=== PATIENT | female | born 1990 | race Caucasian/White ===

== ENCOUNTER 2021-10-17 04:30 | Inpatient (IN) ==
[2021-10-17 04:35] VITALS: BMI 46.9
[2021-10-17 05:07] LABS: BILIRUBIN,URINE NEGATIVE (NEGATIVE); BLOOD/HEMOGLOBIN,URINE NEGATIVE (NEGATIVE); GLUCOSE, URINE NEGATIVE (NEGATIVE); KETONES,URINE NEGATIVE (NEGATIVE); LEUKOCYTE ESTERASE ,URINE NEGATIVE (NEGATIVE); NITRITES,URINE NEGATIVE (NEGATIVE); PROTEIN,URINE NEGATIVE (NEGATIVE); UROBILINOGEN,URINE NORMAL (NORMAL)
[2021-10-17 05:17] LABS: APPEARANCE,URINE CLEAR (CLEAR); COLOR,URINE PALE YELLOW (YELLOW)
[2021-10-17] MEDS ORDERED: REGLAN INJ 10 MG VIAL IVP PRN (05:30)
[2021-10-17] MEDS ORDERED: PITOCIN IVP ONE (05:30)
[2021-10-17] MEDS ORDERED: D5 LR + PITOCIN 10 UNITS/L 10 UNITS/1,000 ML BAG IV PRN (05:30)
[2021-10-17] MEDS ORDERED: LR 1,000 ML IV 1,000 ML IV ONE ×2 (05:30→06:28)
[2021-10-17] MEDS ORDERED: PITOCIN ONE (05:47)
[2021-10-17] MEDS ORDERED: D5 LR + PITOCIN 10 UNITS/L 10 UNITS/1,000 ML BAG IV ONE (05:47)
[2021-10-17] MEDS ORDERED: BETADINE SOLN ONE (05:47)
[2021-10-17] MEDS ORDERED: D5 1/2 NS 1,000 ML 1,000 ML IV ONE (05:47)
[2021-10-17] MEDS ORDERED: D5 1/2 NS 1,000 mL + PITOCIN 20 UNITS/L IV 20 UNITS/1,000 ML BAG IV ONE (05:48)
[2021-10-17] MEDS ORDERED: STADOL INJ ONE ×3 (05:48→14:01)
[2021-10-17] MEDS: STADOL INJ IVP PRN ×2 (05:50→10:36)
[2021-10-17 05:54] LABS: BASOPHILS % (AUTO) 0.3 % (0.2-1.0); EOSINOPHILS # (AUTO) 0.1 x10^3/uL (0.0-0.2); EOSINOPHILS % (AUTO) 0.5 % (0.9-2.9); HEMATOCRIT 36.2 % (36.0-47.0); LYMPHOCYTES # (AUTO) 1.5 X10^3/uL (1.3-2.9); LYMPHOCYTES % (AUTO) 9.6 % (21.0-51.0); MEAN CORPUSCULAR HEMOGLOBIN 29.8 pg (27.0-34.0); MEAN CORPUSCULAR HGB CONC 33.1 g/dL (33.0-35.0); MEAN PLATELET VOLUME 7.6 fL (7.4-11.0); MONOCYTES # (AUTO) 0.9 x10^3/uL (0.3-0.8); MONOCYTES % (AUTO) 5.5 % (0.0-13.0); NEUTROPHILS # (AUTO) 13.5 x10^3/uL (2.2-4.8); NEUTROPHILS % (AUTO) 84.1 % (42.0-75.0); PLATELET COUNT 285 X10^3/uL (150.0-450.0); RED BLOOD COUNT 4.02 X10^6/uL (3.5-5.4); RED CELL DISTRIBUTION WIDTH 15.9 % (11.6-16.5); WHITE BLOOD COUNT 16.1 X10^3/uL (3.6-10.0)
[2021-10-17] MEDS ORDERED: D5 1/2 NS 1,000 ML 1,000 ML IV SCH (06:00)
[2021-10-17 06:03] LABS: ALANINE AMINOTRANSFERASE 15 Units/L (12-78); ALBUMIN 2.4 g/dL (3.4-5.0); ALKALINE PHOSPHATASE 119 Units/L (46-116); ASPARTATE AMINO TRANSFERASE 8 Units/L (15-37); BLOOD UREA NITROGEN 6 mg/dL (7-18); CALCIUM 8.1 mg/dL (8.5-10.1); CARBON DIOXIDE 18.9 mmol/L (21-32); CHLORIDE 106 mmol/L (98-107); COR CA(FOR HYPOALB) 9.4 mg/dL (8.5-10.1); CREATININE 0.63 mg/dL (0.55-1.02); SODIUM 136 mmol/L (136-145); TOTAL PROTEIN 6.3 g/dL (6.4-8.2); eGFR NON BLACK RACES > 60 (>60)
[2021-10-17 06:21] LABS: AMNISURE ROM TEST THERE IS A RUPTURE (NO RUPTURE)
[2021-10-17] MEDS ORDERED: FENTANYL VIAL INJ 100 mcg ONE (06:28)
[2021-10-17] MEDS ORDERED: NAROPIN EPIDURAL 0.2% 100 ML ONE (06:28)
--- NOTE | 2021-10-17 06:47 | DR.OB ---
OB Quick Note - Assessment/Plan Assessment/Plan: S-No complaint except CTX. O-Afebrile,VSS [id number] with good LTV, +accel, no decel. CTX=q 2-3 min., strong by palpation CVX=4-5cm/90%/0/VTX SROM noted with clear fluid. IUPC and FSE placed. No lesions noted. A-IUP at 39 1/7 weeks in active labor and SROM P-Begin pitocin augmentation as needed. F/U labs Anticipate
[2021-10-17] MEDS ORDERED: MORPHINE SULFATE INJ 2 MG INJ IVP PRN (08:25)
[2021-10-17] MEDS ORDERED: TYLENOL 500 MG TAB EXTRA STRENGTH PO PRN ×2 (09:36→15:01)
[2021-10-17] MEDS ORDERED: TYLENOL 500 MG TAB EXTRA STRENGTH PO ONE (09:38)
[2021-10-17] MEDS ORDERED: PHENERGAN INJ 25 MG IM PRN (14:10)
[2021-10-17] MEDS: D5 1/2 NS 1,000 ML 1,000 ML with PITOCIN 20 UNITS IV SCH ×4 (14:20→23:06)
[2021-10-17] MEDS ORDERED: MILK OF MAGNESIA PO PRN (15:01)
[2021-10-17] MEDS ORDERED: AMBIEN PO PRN (15:01)
[2021-10-17] MEDS ORDERED: ADACEL or BOOSTRIX TDaP VACCINE IM ONE (15:01)
[2021-10-17] MEDS ORDERED: DERMOPLAST PAIN RELIEF SPRAY TOP PRN (15:01)
--- NOTE | 2021-10-17 16:23 | DR.OB ---
OB Quick Note - Assessment/Plan Assessment/Plan: Delivery Note PORTFOLIO MANAGER 10/17/21 at 1:57pm Patient complete and pushing. Head delivered over intact perineum. No nuchal cord. Nose and mouth bulb suctioned. Body delivered over intact perineum. Cord clamped x 2 and cut. Infant handed to attendant. Cord sent for gases. Placenta delivered spontaneously / intact / 3 vessel cord. No CVX / vaginal / perineal tears noted. Viable female infant, VTX/OA, wt=6'7" and 9/9, stable to NBN. Mother stable to RR. [id number].
[2021-10-17] MEDS: MOTRIN TAB 800 MG PO PRN (17:33)
[2021-10-18 05:29] LABS: HEMATOCRIT 30.4 % (36.0-47.0); HEMOGLOBIN 10.2 g/dL (12.0-16.0)
[2021-10-18] MEDS ORDERED: PRENATAL PLUS PO SCH (09:00)
[2021-10-18] MEDS ORDERED: VALTREX PO SCH (09:00)
[2021-10-18] MEDS: MOTRIN TAB 800 MG PO PRN (09:05)
[2021-10-18 16:17] VITALS: BP 144/92
== END 2021-10-18 17:12 | disposition home or self-care (01) | DRG 807 ==
LOC: ER 04:30 → LD 05:33 → MED/SURG 15:22
PROVIDERS: ADMIT Specialist; ATTEND Specialist
DX: Z37.0 Single live birth; O74.5 Spinal and epidural anesthesia-induced headache during labor and delivery; O98.313 Other infections with a predominantly sexual mode of transmission complicating pregnancy, third trimester; Z3A.39 39 weeks gestation of pregnancy; Z20.822 Contact with and (suspected) exposure to COVID-19